=== PATIENT | female | born 1965 | race African-American/Black ===

== ENCOUNTER 2020-04-26 11:59 | Outpatient (REF) | payer MEDICARE, MEDICAID, SELFPAY | END 2020-04-26 12:00 | disposition home or self-care (01) | LOC: HO.LAB 11:59 | PROVIDERS: PCP Nurse Practitioner Family; Visit Provider Internal Medicine | DX: Z20.828 Contact with and (suspected) exposure to other viral communicable diseases (principal) | CPT/HCPCS: U0003 ==